=== PATIENT | female | born 1995 | race Caucasian/White ===

== ENCOUNTER 2020-10-03 10:59 | Inpatient (IN) | payer MEDICAID ==
[2020-10-03] MEDS ORDERED: RINGERS SOLUTION,LACTATED 1,000 ML IV PRN (11:17)
[2020-10-03] MEDS: RINGERS SOLUTION,LACTATED 1,000 ML IV PRN ×2 (11:50→17:39)
[2020-10-03 12:07] LABS: ABSOLUTE BASOPHILS # (AUTO) 0.1 10^3/uL (0.0-0.2); ABSOLUTE LYMPHOCYTES (AUTO) 1.3 10^3/uL (0.5-4.7); ABSOLUTE MONOCYTES (AUTO) 0.5 10^3/uL (0.1-1.4); BASOPHILS % (AUTO) 1.3 % (0-2); EOSINOPHILS % (AUTO) 0.4 % (0-6); HEMATOCRIT 34.5 % (36.0-47.0); HEMOGLOBIN 11.3 g/dL (12.0-15.5); LYMPHOCYTES % (AUTO) 19.2 % (13-45); MEAN CORPUSCULAR HEMOGLOBIN 26.7 pg (27.0-33.4); MEAN CORPUSCULAR HGB CONC 32.7 g/dL (32.0-36.0); MEAN CORPUSCULAR VOLUME 82 fl (80-97); MONOCYTES % (AUTO) 7.5 % (3-13); PLATELET COUNT 292 10^3/uL (150-450); RED BLOOD COUNT 4.24 10^6/uL (3.72-5.28); RED CELL DISTRIBUTION WIDTH 14.4 % (11.5-14.0); SEGMENTED NEUTROPHILS % (AUTO) 71.6 % (42-78); TOTAL CELLS COUNTED % (AUTO) 100 %
[2020-10-03 12:17] LABS: APPEARANCE,URINE CLEAR; BILIRUBIN,URINE NEGATIVE (NEGATIVE); COLOR,URINE STRAW; GLUCOSE, URINE NEGATIVE (NEGATIVE); KETONES,URINE NEGATIVE (NEGATIVE); LEUKOCYTE ESTERASE,URINE TRACE (NEGATIVE); NITRITE,URINE NEGATIVE (NEGATIVE); PROTEIN,URINE 30 mg/dL (NEGATIVE); URINE SPECIFIC GRAVITY 1.005; UROBILINOGEN,URINE NEGATIVE mg/dL (<2.0)
[2020-10-03 12:23] LABS: ALKALINE PHOSPHATASE 291 U/L (38-126); ANION GAP 8 (5-19); ASPARTATE AMINO TRANSFERASE 24 U/L (14-36); BILIRUBIN,DIRECT 0.2 mg/dL (0.0-0.4); BILIRUBIN,TOTAL 0.4 mg/dL (0.2-1.3); BLOOD UREA NITROGEN 9 mg/dL (7-20); CALCIUM 9.4 mg/dL (8.4-10.2); CARBON DIOXIDE 20 mmol/L (22-30); CHLORIDE 109 mmol/L (98-107); GLUCOSE 81 mg/dL (75-110); POTASSIUM 4.3 mmol/L (3.6-5.0); TOTAL PROTEIN 5.9 g/dL (6.3-8.2); URIC ACID 5.5 mg/dL (2.5-6.2)
[2020-10-03 12:50] LABS: UR PRO/CREAT RATIO RESULT 1.7 mg/mg (0.0-0.2); URINE CREATININE 51.6 mg/dL (16-327); URINE PROTEIN 87.6 mg/dL (<12)
[2020-10-03] MEDS ORDERED: OXYTOCIN/0.9 % SODIUM CHLORIDE 30 UNIT/500 ML RTUINJ IV PRN (18:01)
[2020-10-03] MEDS ORDERED: OXYTOCIN 10 UNIT/ML VIAL ONE (18:26)
[2020-10-03] MEDS ORDERED: MISOPROSTOL 0.2 MG TABLET ONE (18:27)
[2020-10-03] MEDS ORDERED: OXYTOCIN/0.9 % SODIUM CHLORIDE 30 UNIT/500 ML RTUINJ ONE (18:27)
[2020-10-03] MEDS ORDERED: LIDOCAINE 1% INJ-PF (10 MG/ML) 30 ML SDV ONE (18:27)
[2020-10-03] MEDS ORDERED: FENTANYL/BUPIVACAINE/NS/PF 300 MCG/150 ML RTUINJ EPI ONE (18:31)
[2020-10-03] MEDS ORDERED: EPHEDRINE SULFATE INJ 50 MG/1 ML AMPULE ONE (18:31)
[2020-10-03] MEDS ORDERED: ROPIVACAINE HCL 0.2% INJ/PF (2 MG/ML) 20 ML SDV ONE (18:32)
--- NOTE | 2020-10-03 23:00 | Admission Physical ---
Datetime Report Generated by CPN: 10/03/2020 23:00 CURRENT ADMISSION Chief Complaint: Sent from OB Office for Evaluation and Treatment - Please Specify Indication for Induction: Not Applicable Admit Impression : Term, Intrauterine Admit Plan: Admit to Unit ALLERGIES Medication Allergies: No Medication Allergies: No Known Allergies (10/03/2020) Latex: No Latex Allergies Food Allergies: none Environmental Allergies: none OBSTETRICAL HISTORY EDC: 10/15/2020 00:00 : 3 Para: 0 Term: 0 : 0 SAB: 0 IAB: 0 Ectopic: 0 Livin Cesareans: 0 VBACs: 0 Multiple Births: 0 Gestational Diabetes: No Rh Sensitization: No Incompetent Cervix: No LUCRECIA: No Infertility: No ART Treatment: No Uterine Anomaly: No IUGR: No Hx Previous C/S: No Macrosomia: No Hx Loss/Stillborn: No PIH: Yes Hx : No Placenta Previa/Abruption: No Depression/PP Depression: No PTL/PROM: No Post Hemorrhage: No Current Procedures: Ultrasound Obstetrical History Comments: G1- SAB at 7 weeks G2- SAB at 5 weeks G3- Current SEE RECORDS Alcohol: No Marijuana : No Cocaine: No Other Illicit Drugs: No Cigarettes: Never Smoker. [id number] MEDICAL HISTORY Diabetes: No Blood Transfusion: No Pulmonary Disease (Asthma, TB): No Breast Disease: No Hypertension: Yes Acute Dialysis Registered Nurse Surgery: No Heart Disease: No Hosp/Surgery: No Autoimmune Disorder: No Anesthetic Complications: No Kidney Disease: No Abnormal Pap Smear: No Neuro/Epilepsy: No Psychiatric Disorders: No Other Medical Diseases: No Hepatitis/Liver Disease: No Significant Family History: No Varicosities/Phlebitis: No Trauma/Violence : No Thyroid Dysfunction: No Medical History Comments: endometrosis INFECTIOUS HISTORY Gonorrhea: No Genital Herpes: No Chlamydia: No Tuberculosis: No Syphilis: No Hepatitis: No HIV/AIDS Exposure: No Rash or Viral Illness: No HPV: No PHYSICAL EXAM General: Normal HEENT: Normal Neurologic: Normal Thyroid: Normal Heart: Normal Lungs: Normal Breast: Deferred Back: Normal Abdomen: Normal Genitourinary Exam: Normal Extremities: Normal DTRs: Normal Pelvic Type: Adequate FETUS A EGA: 38.2 Admit Comment: elevated bp in office and noted to be 4-5 cms PLANS FOR LABOR AND DELIVERY Labor and Delivery: None Pain Management: Epidural Feeding Preference: Formula Benefit of Breast Feed Discussed: Yes Circumcision: Yes INFORMED CONSENT Signature: with User ID: [email or web address]
[2020-10-04] MEDS ORDERED: BENZOCAINE/MENTHOL AEROSOL SPRAY 56 ML TOP PRN (02:07)
[2020-10-04] MEDS ORDERED: GLYCERIN/WITCH HAZEL LEAF 1 EACH MED..WIPE TP PRN (02:07)
[2020-10-04] MEDS ORDERED: FAMOTIDINE 20 MG TABLET PO PRN (02:07)
[2020-10-04] MEDS ORDERED: DIPH/PERTUSS(ACELL)/TETANUS VAC/PF 0.5 ML SYR (>=10YO) IM PRN (02:07)
[2020-10-04] MEDS ORDERED: OXYTOCIN/0.9 % SODIUM CHLORIDE 30 UNIT/500 ML RTUINJ IV PRN (02:07)
[2020-10-04] MEDS ORDERED: ACETAMINOPHEN 650 MG SUPP.RECT PR PRN (02:07)
[2020-10-04] MEDS ORDERED: VARICELLA VACC/PF (1350 UNIT/0.5 ML) 0.5 ML VIAL SUBCUT PRN (02:07)
[2020-10-04] MEDS ORDERED: ACETAMINOPHEN WITH CODEINE #3 TABLET PO PRN (02:07)
[2020-10-04] MEDS ORDERED: ACETAMINOPHEN 325 MG TABLET PO PRN (02:07)
[2020-10-04] MEDS ORDERED: DIPHENHYDRAMINE HCL 25 MG CAPSULE PO PRN (02:07)
[2020-10-04] MEDS ORDERED: DIBUCAINE 1% OINTMENT 28 GM TP PRN (02:07)
[2020-10-04] MEDS ORDERED: MAG HYDROX/AL HYDROX/SIMETH SUSP 30 ML UDCUP PO PRN (02:07)
[2020-10-04] MEDS ORDERED: MEASLES,MUMPS&RUBELLA VACC/PF 0.5 ML VIAL SUBCUT PRN (02:07)
[2020-10-04] MEDS ORDERED: MAGNESIUM HYDROXIDE SUSP 30 ML UDCUP PO PRN (02:07)
[2020-10-04] MEDS ORDERED: ZOLPIDEM TARTRATE 5 MG TABLET PO PRN (02:07)
[2020-10-04] MEDS ORDERED: PSEUDOEPHEDRINE HCL 30 MG TABLET PO PRN (02:07)
--- NOTE | 2020-10-04 03:23 | Delivery Summary ---
Del Sum A-C Datetime Report Generated by CPN: 10/04/2020 03:23 DELIVERY PERSONNEL DELIVERY PERSONNEL: [id number] Delivery Doctor:: Brannon Swain MD Labor and Delivery Nurse:: Christine Martínez RNupfitter Nurse:: Suki Jeremy, JHONATHAN Column Precaster/LOADER OPERATOR/GROUND LEADER: Linda Green, ST MATERNAL INFORMATION Delivery Anesthesia: Epidural Medications After Delivery: Pitocin Bolus-Please Comment Delivery QBL: 100 Maternal Complications: None LABOR SUMMARY EDC: 10/15/2020 00:00 No. Babies in Womb: 1 Attempted: No Labor Anesthesia: Epidural LABOR INFORMATION Reason for Induction: Pre-Eclampsia Onset of Labor: 10/03/2020 19:30 Complete Dilatation: 10/03/2020 23:57 Oxytocin: Induction Group B Beta Strep: neg Antibiotics # of Doses: 0 Name of Antibiotic Given: n/a Steroids Given: None Reason Steroids Not Administered: Not Applicable MEMBRANES Membranes Rupture Method: Spontaneous Rupture of Membranes: 10/03/2020 23:14 Length of Rupture (hr): 2.73 Amniotic Fluid Color: Clear Amniotic Fluid Amount: Small Amniotic Fluid Odor: Normal STAGES OF LABOR Stage 1 hr: 4 Stage 1 min: 27 Stage 2 hr: 2 Stage 2 min: 1 Stage 3 hr: 0 Stage 3 min: 3 Total Time in Labor hr: 6 Total Time in Labor min: 31 VAGINAL DELIVERY Episiotomy: None Laceration #1: Perineal Laceration Extension #1: First Degree Laceration Repair: Yes Sponge Count Correct: Yes Sharps Count Correct: Yes CSECTION DELIVERY Primary Indication: N/A Secondary Indication: N/A CSection Incidence: N/A Labor: N/A Elective: N/A CSection Incision: N/A BABY A INFORMATION Delivery Date/Time: 10/04/2020 01:58 Method of Delivery: Vaginal Nurse Controlled Delivery: No Born in Route : No : N/A Forceps: N/A Vacuum Extraction: N/A Shoulder Dystocia : No PRESENTATION/POSITION BABY A Presentation: Cephalic Cephalic Presentation: Vertex Vertex Position: Left Occipital Anterior Breech Presentation: N/A PLACENTA INFORMATION BABY A Placenta Delivery Time : 10/04/2020 02:01 Placenta Method of Delivery: Spontaneous Placenta Status: Delivered SCORES BABY A Heart Rate 1 min: >100 bpm Resp Effort 1 min: Good Cry Reflex Irritability 1 min: Cough or Sneeze or Pulls Away Muscle Tone 1 min: Active Motion Color 1 min: Body [place], Extremities Blue Resuscitation Effort 1 min: Tactile Stimulation SCORE 1 MIN: 9 Heart Rate 5 min: >100 bpm Resp Effort 5 min: Good Cry Reflex Irritability 5 min: Cough or Sneeze or Pulls Away Muscle Tone 5 min: Active Motion Color 5 min: Body [place], Extremities Blue Resuscitation Effort 5 min: Tactile Stimulation SCORE 5 MIN: 9 INFANT INFORMATION BABY A Gestational Age at Delivery: 38.3 Gestational Status: Early Term- 37- 38.6 Weeks Infant Outcome : Liveborn Condition : Stable Sex: Male IDENTIFICATION BABY A Verification Date/Time: 10/04/2020 02:24 ID Band Number: [id number] Mother's Name Verified: Yes RN Verifying Infant: Viki Martínez, RN Additional Verifying Personnel: T Gentilin, RN WEIGHT/LENGTH BABY A Birthweight (gm): 2700 Infant Weight (lb): 5 Infant Weight (oz): 15 Length (in): 19.00 Infant Length (cm): 48.26 CORD INFORMATION BABY A No. Cord Vessels: 3 Nuchal Cord : N/A Cord Blood Taken: Yes-For Storage (Mom's Blood type +) Suction: None ASSESSMENT BABY A Complications: None Physical Findings at Delivery: Within Normal Limits Respirations: Appears Normal Skin to Skin: Yes Skin to Skin Time (min): 60 Pet Nutrition Specialist/ALS Called : No Care By: Trenton Luna RN Transferred To: Remains with Mother BABY B INFORMATION : N/A SIGNATURES Signature: with User ID: [email or web address]
--- NOTE | 2020-10-04 03:23 | Birth Certificate Data ---
Cert Data Datetime Report Generated by CPNicanor: 10/04/2020 03:23 CERTIFICATE DATA Delivery Provider: Brannon Swain MD (10/03/2020 11:43:uSki Luna RN) 47a. Care: Yes (10/03/2020 11:43:Jayde Anand RN) 47b. Date of First Visit: 04/04/2020 00:00 (10/03/2020 11:43:Christine Martínez RN) 47c. Date of Last Visit: 10/03/2020 00:00 (10/03/2020 11:43:Christine Martínez RN) 47d. Number of Visits: 10 (10/03/2020 11:43:Christine Martínez RN) 48a. Number of Prev Live Births: 0 (10/03/2020 11:43:Jayde Anand RN) 48b. Now Livin (10/03/2020 11:43:Jayde Anand RN) 48c. Live Births Now : 0 (10/03/2020 11:43:QS system process) 48e. Losses: 2 (10/03/2020 11:43:Christine Martínez RN) 48f. Date of Last Preg Loss: 04/18/2019 00:00 (10/03/2020 11:43:Christine Martínez RN) RISK FACTORS IN THIS 49a. Diabetes: No (10/03/2020 11:43:Jayde Anand RN) 49b. Hypertension: Yes (10/03/2020 11:43:Jayde Anand RN) Type of Hypertension: Gestational (PIH, Pre-eclampsia) (10/03/2020 11:43:Jayde Anand RN) 49c. Previous Births: 0 (10/03/2020 11:43:Jayde Anand RN) 49d. Stillborns: No (10/03/2020 11:43:Jayde Anand RN) 49d. IUGR: No (10/03/2020 11:43:Jayde Anand RN) 49e. Infertility Treatment: No (10/03/2020 11:43:Jayde Anand RN) 49f. Previous Cesareans: 0 (10/03/2020 11:43:Jayde Anand RN) Mother's Height 50b. Height Inches: 61 (10/03/2020 11:17:QS system process) Mother's Weight 51a. Pre- Weight (lbs): 130 (10/03/2020 11:43:Jayde Anand RN) 51b. Weight at Delivery (lbs): 158 (10/03/2020 11:17:QS system process) 52. Dt Last Normal Menses Began: 01/01/2020 00:00 (10/03/2020 11:43:Jayde Anand RN) Infections Present/Treated 53a. Gonorrhea: No (10/03/2020 11:43:Jayde Anand RN) Results this Hospital Visit : Negative (10/03/2020 11:43:Jayde Anand RN) 53b. Syphilis: No (10/03/2020 11:43:Jayde Anand RN) 53c. Chlamydia: No (10/03/2020 11:43:Jayde Anand RN) Results this Hospital Visit: Negative (10/03/2020 11:43:Jayde Anand RN) 53d. Hepatitis B: No (10/03/2020 11:43:Jayde Anand RN) Results this Hospital Visit: Negative (10/03/2020 11:43:Jayde Anand RN) 53e. Hepatitis C: Negative (10/03/2020 11:43:Jayde Anand RN) 53h. Mother Tested for HBsAG: Yes (10/03/2020 11:43:Jayde Anand RN) 53i. Date Tested: 04/04/2020 00:00 (10/03/2020 11:43:Jayde Anand RN) 53j. Test Result: Negative (10/03/2020 11:43:Jayde Anand RN) Obstetric Procedures 54a, b, c. Obstetric Procedures: Ultrasound (10/03/2020 11:43:Jayde Anand RN) Cigarette Smoking Cigarette Smoking: Never Smoker. [id number] (10/03/2020 11:43:Christine Martínez RN) 55a. 3 Months Before Preg - Ci (10/03/2020 11:43:Christine Martínez RN) 55a. Packs: 0 (10/03/2020 11:43:Christine Martínez RN) 55b. 1st Trimester of Preg- Ci (10/03/2020 11:43:Christine Martínez RN) 55b. Packs: 0 (10/03/2020 11:43:Christine Martínez RN) 55c. 2nd Trimester of Preg- Ci (10/03/2020 11:43:Christine Martínez RN) 55c. Packs: 0 (10/03/2020 11:43:Christine Martínez RN) 55d. 3rd Trimester of Preg- Ci (10/03/2020 11:43:Christine Martínez RN) 55d. Packs: 0 (10/03/2020 11:43:Christine Martínez RN) Onset of Labor 56a. PROM >12 Hrs: 2.73 (10/03/2020 11:43:QS system process) 56b. Precipitous Labor <3 Hrs: 6 (10/03/2020 11:56:QS system process) 56c. Prolonged Labor > 20 Hrs: 6 (10/03/2020 11:56:QS system process) 57a. Induction of Labor: Induction (10/03/2020 11:43:Suki Luna RN) 57c. Non-Vertex Presentation A: Vertex (10/03/2020 11:43:uSki Luna RN) 57d. Steroids - Lung Mat: None (10/03/2020 11:43:Suki Luna RN) 57d. Steroids - Lung Mat: Not Applicable (10/03/2020 11:43:Suki Luna RN) 57f. Mat [place] or Temp >100.4: 98.9 (10/03/2020 11:43:Suki Luna RN) 57g. Moderate/Heavy Meconium: Clear (10/03/2020 23:14:Christine Martínez RN) 57h. Intolerance of Labor: N/A (10/03/2020 11:43:Suki Luna RN) : N/A (10/03/2020 11:43:Suki Luna RN) 57i. Epidural/Spinal Anesthesia: Epidural (10/03/2020 11:43:Suki Luna RN) Method of Delivery 58a. Forceps - Unsuccessful A: N/A (10/03/2020 11:43:Suki Luna RN) 58b. Vacuum - Unsuccessful A: N/A (10/03/2020 11:43:Suki Luna RN) 58c. Presentation at 58c. Presentation at - A : Vertex (10/03/2020 11:43:Suki Luna RN) 58c. Presentation at - A : N/A (10/03/2020 11:43:Suki Luna RN) 58c. Presentation at - A : Cephalic (10/03/2020 15:59:Jayde Anand RN) Final Route and Method of Del 58d. Baby A Route/Delivery: Vaginal (10/04/2020 01:58:Christine Martínez RN) 58e. Trial of Labor Attempted: No (10/03/2020 11:43:Suki Luna RN) 58e. Trial of Labor Attempted A: N/A (10/03/2020 11:43:Suki Luna RN) 58e. Trial of Labor Attempted B: N/A (10/03/2020 11:43:Suki Luna RN) Maternal Morbidity 59b. 3rd or 4th Degree Lacs: Perineal (10/03/2020 11:43:Suki Luna RN) 59b. 3rd or 4th Degree Lacs: First Degree (10/03/2020 11:43:Christine Martínez, RN) Birthweight Baby A: 2700 (10/03/2020 11:43:Marisol Barillas RN) 60a. Pounds : 5 (10/03/2020 11:43:QS system process) 60b. Ounces: 15 (10/03/2020 11:43:QS system process) 61. GA at Delivery Baby A: 38.3 (10/03/2020 11:43:Suki Luna RN) : Early Term- 37- 38.6 Weeks (10/03/2020 11:43:QS system process) 62a. 5 Minute Baby A: 9 (10/03/2020 11:43:QS system process)
[2020-10-04] MEDS ORDERED: IBUPROFEN 800 MG TABLET ONE (03:36)
[2020-10-04] MEDS: IBUPROFEN 800 MG TABLET PO SCH ×3 (05:36→21:38)
[2020-10-04] MEDS: SENNOSIDES/DOCUSATE 8.6-50 MG 1 EACH TABLET PO SCH (09:45)
[2020-10-04] MEDS: FERROUS SULFATE 325 MG TABLET PO SCH ×2 (09:45→17:11)
[2020-10-04] MEDS: DOCUSATE SODIUM 100 MG CAPSULE PO SCH ×2 (09:45→17:11)
[2020-10-04] MEDS: PRENATAL VITAMIN W DHA CAPSULE PO SCH (09:45)
--- NOTE | 2020-10-04 10:07 | PDOC PROGRESS REPORT ---
Subjective-OB Progress Note for:: 10/04/20 Subjective: Pt doing well, no concerns. She reports light bleeding, reg diet and voiding w/o difficulty. Physical Exam (OB) Vital Signs: Temp Pulse Resp BP Pulse Ox 97.9 F 64 18 116/68 99 10/04/20 07:27 10/04/20 07:27 10/04/20 07:27 10/04/20 07:27 10/04/20 07:27 Intake & Output 10/03/20 10/04/20 10/05/20 06:59 06:59 06:59 Intake Total 140 Balance 140 Weight 71.5 kg - PIH/Pre-Eclampsia DTR's: 1 + Clonus: Negative Headache: Absent Epigastric Pain: No Visual Changes: No - Maternal Morbidity 59. Maternal Morbidity (serious complications experinced by the mother associated with labor and delivery: None of the above - Lochia Lochia Amount: Scant < 10 ml Lochia Color: Rubra/Red - Abdomen Description: Soft, Round Hernia Present: No Fundal Description: Firm, Midline Fundal Height: u/u - u/2 Objective-Diagnostic Laboratory: 10/03/20 11:31 10/03/20 11:31 10/03/20 10/03/20 10/03/20 11:23 11:31 11:31 WBC 7.0 RBC 4.24 Hgb 11.3 L Hct 34.5 L MCV 82 MCH 26.7 L MCHC 32.7 RDW 14.4 H Plt Count 292 Seg Neutrophils % 71.6 Sodium 136.9 L Potassium 4.3 Chloride 109 H Carbon Dioxide 20 L Anion Gap 8 BUN 9 Creatinine 0.53 Est GFR ( Amer) > 60 Glucose 81 Uric Acid 5.5 Calcium 9.4 Total Bilirubin 0.4 AST 24 Alkaline Phosphatase 291 H Total Protein 5.9 L Albumin 3.0 L Urine Color STRAW Urine Appearance CLEAR Urine pH 8.0 Ur Specific [place] 1.005 Urine Protein 30 H Urine Glucose (UA) NEGATIVE Urine Ketones NEGATIVE Urine Blood LARGE H Urine Nitrite NEGATIVE Ur Leukocyte Esterase TRACE H Blood Type Antibody Screen 10/03/20 11:31 WBC RBC Hgb Hct MCV MCH MCHC RDW Plt Count Seg Neutrophils % Sodium Potassium Chloride Carbon Dioxide Anion Gap BUN Creatinine Est GFR ( Amer) Glucose Uric Acid Calcium Total Bilirubin AST Alkaline Phosphatase Total Protein Albumin Urine Color Urine Appearance Urine pH Ur Specific [place] Urine Protein Urine Glucose (UA) Urine Ketones Urine Blood Urine Nitrite Ur Leukocyte Esterase Blood Type A POSITIVE Antibody Screen NEGATIVE Assessment and Plan(PN) - Assessment and Plan (1) Laceration, obstetrical, first degree Is this a current diagnosis for this admission?: Yes (2) Mild pre-eclampsia, delivered, current hospitalization Is this a current diagnosis for this admission?: Yes (3) Vaginal delivery Is this a current diagnosis for this admission?: Yes - Time Spent with Patient Time with patient: Less than 15 minutes Medications reviewed and adjusted accordingly: Yes - Disposition Anticipated Discharge Disposition: Home, Self Care Anticipated Discharge Timeframe: within 24 hours
[2020-10-05] MEDS: IBUPROFEN 800 MG TABLET PO SCH ×2 (05:40→13:14)
[2020-10-05 08:26] VITALS: BP 120/80
[2020-10-05 08:49] LABS: HEMATOCRIT 32.2 % (36.0-47.0); HEMOGLOBIN 10.8 g/dL (12.0-15.5); MEAN CORPUSCULAR HEMOGLOBIN 27.5 pg (27.0-33.4); MEAN CORPUSCULAR HGB CONC 33.5 g/dL (32.0-36.0); MEAN CORPUSCULAR VOLUME 82 fl (80-97); PLATELET COUNT 246 10^3/uL (150-450); RED BLOOD COUNT 3.92 10^6/uL (3.72-5.28); RED CELL DISTRIBUTION WIDTH 14.7 % (11.5-14.0); WHITE BLOOD COUNT 10.1 10^3/uL (4.0-10.5)
[2020-10-05] MEDS: SENNOSIDES/DOCUSATE 8.6-50 MG 1 EACH TABLET PO SCH (09:53)
[2020-10-05] MEDS: DOCUSATE SODIUM 100 MG CAPSULE PO SCH (09:53)
[2020-10-05] MEDS: PRENATAL VITAMIN W DHA CAPSULE PO SCH (09:53)
[2020-10-05] MEDS: FERROUS SULFATE 325 MG TABLET PO SCH (09:53)
--- NOTE | 2020-10-05 10:19 | PDOC PROGRESS REPORT ---
Subjective-OB Progress Note for:: 10/05/20 Subjective: Pt doing well, no concerns. She reports light bleeding, reg diet and voiding w/o difficulty. She would like to go home today. Physical Exam (OB) Vital Signs: Temp Pulse Resp BP Pulse Ox 97.4 F 82 16 120/80 100 10/05/20 07:53 10/05/20 07:53 10/05/20 07:53 10/05/20 07:53 10/05/20 07:53 Intake & Output 10/04/20 10/05/20 10/06/20 06:59 06:59 06:59 Intake Total 140 Balance 140 Weight 71.5 kg - Maternal Morbidity 59. Maternal Morbidity (serious complications experinced by the mother associated with labor and delivery: None of the above - Lochia Lochia Amount: Scant < 10 ml Lochia Color: Rubra/Red - Abdomen Description: Soft Hernia Present: No Fundal Description: Firm, Midline Fundal Height: u/u - u/2 Objective-Diagnostic Laboratory: 10/05/20 08:32 10/03/20 11:31 10/05/20 08:32 WBC 10.1 RBC 3.92 Hgb 10.8 L Hct 32.2 L MCV 82 MCH 27.5 MCHC 33.5 RDW 14.7 H Plt Count 246 Assessment and Plan(PN) - Assessment and Plan (1) Laceration, obstetrical, first degree Is this a current diagnosis for this admission?: Yes (2) Mild pre-eclampsia, delivered, current hospitalization Is this a current diagnosis for this admission?: Yes (3) Vaginal delivery Is this a current diagnosis for this admission?: Yes - Time Spent with Patient Time with patient: Less than 15 minutes Medications reviewed and adjusted accordingly: Yes - Disposition Anticipated Discharge Disposition: Home, Self Care Anticipated Discharge Timeframe: within 24 hours
--- NOTE | 2020-10-05 10:19 | PDOC DISCHARGE SUMMARY ---
Impression - Admit/DC Date/PCP Admission Date/Primary Care Provider: 10/03/20 10:59 OLGA HERNANDEZ CNM Discharge Date: 10/05/20 - Discharge Diagnosis (1) Laceration, obstetrical, first degree Is this a current diagnosis for this admission?: Yes (2) Mild pre-eclampsia, delivered, current hospitalization Is this a current diagnosis for this admission?: Yes (3) Vaginal delivery Is this a current diagnosis for this admission?: Yes - Additional Information Resuscitation Status: Full Code Discharge Diet: Regular Discharge Activity: Balance Activity w/Rest, Pelvic Rest Referrals: OLGA HERNANDEZ CNM [Primary Care Provider] - Prescriptions: Ibuprofen [Motrin 800 mg Tablet] 800 mg PO Q8HP PRN #60 tablet PRN Reason: Home Medications: Pnv 102/Iron/Folate 1/Dss/Dha [Vitafol Fe+ Docusate Combo Pck] 1 each PO DAILY 10/03/20 Ibuprofen [Motrin 800 mg Tablet] 800 mg PO Q8HP PRN #60 tablet 10/05/20 HPI Gestational Age: 38.2 Reason(s) for Admission: Induction of Labor, Obstetric Complications, PIH Admission Note: sent from office 4-5 cm dilated, with elevated BP and proteinuria Procedures: NST Intrapartum Procedure(s): Spontaneous Vaginal Delivery Complication(s): Laceration-Perineal Laceration-Degree: 1st Hospital Course 59. Maternal Morbidity (serious complications experinced by the mother associated with labor and delivery: None of the above Results Laboratory Results: WBC 10.1 10^3/uL (4.0-10.5) 10/05/20 08:32 RBC 3.92 10^6/uL (3.72-5.28) 10/05/20 08:32 Hgb 10.8 g/dL (12.0-15.5) L 10/05/20 08:32 Hct 32.2 % (36.0-47.0) L 10/05/20 08:32 MCV 82 fl (80-97) 10/05/20 08:32 MCH 27.5 pg (27.0-33.4) 10/05/20 08:32 MCHC 33.5 g/dL (32.0-36.0) 10/05/20 08:32 RDW 14.7 % (11.5-14.0) H 10/05/20 08:32 Plt Count 246 10^3/uL (150-450) 10/05/20 08:32 Lymph % (Auto) 19.2 % (13-45) 10/03/20 11:31 [place] % (Auto) 7.5 % (3-13) 10/03/20 11:31 Eos % (Auto) 0.4 % (0-6) 10/03/20 11:31 Baso % (Auto) 1.3 % (0-2) 10/03/20 11:31 Absolute Neuts (auto) 5.0 10^3/uL (1.7-8.2) 10/03/20 11:31 Absolute Lymphs (auto) 1.3 10^3/uL (0.5-4.7) 10/03/20 11:31 Absolute Monos (auto) 0.5 10^3/uL (0.1-1.4) 10/03/20 11:31 Absolute Eos (auto) 0.0 10^3/uL (0.0-0.6) 10/03/20 11:31 Absolute Basos (auto) 0.1 10^3/uL (0.0-0.2) 10/03/20 11:31 Seg Neutrophils % 71.6 % (42-78) 10/03/20 11:31 Sodium 136.9 mmol/L (137-145) L 10/03/20 11:31 Potassium 4.3 mmol/L (3.6-5.0) 10/03/20 11:31 Chloride 109 mmol/L (98-107) H 10/03/20 11:31 Carbon Dioxide 20 mmol/L (22-30) L 10/03/20 11:31 Anion Gap 8 (5-19) 10/03/20 11:31 BUN 9 mg/dL (7-20) 10/03/20 11:31 Creatinine 0.53 mg/dL (0.52-1.25) 10/03/20 11:31 Est GFR ( Amer) > 60 (>60) 10/03/20 11:31 Est GFR (MDRD) Non-Af > 60 (>60) 10/03/20 11:31 Glucose 81 mg/dL (75-110) 10/03/20 11:31 Uric Acid 5.5 mg/dL (2.5-6.2) 10/03/20 11:31 Calcium 9.4 mg/dL (8.4-10.2) 10/03/20 11:31 Total Bilirubin 0.4 mg/dL (0.2-1.3) 10/03/20 11:31 Direct Bilirubin 0.2 mg/dL (0.0-0.4) 10/03/20 11:31 Neonat Total Bilirubin Not Reportable 10/03/20 11:31 Neonat Direct Bilirubin Not Reportable 10/03/20 11:31 Neonat Indirect Bili Not Reportable 10/03/20 11:31 AST 24 U/L (14-36) 10/03/20 11:31 ALT 14 U/L (<35) 10/03/20 11:31 Alkaline Phosphatase 291 U/L (38-126) H 10/03/20 11:31 Lactate Dehydrogenase 248 U/L (120-246) H 10/03/20 11:31 Total Protein 5.9 g/dL (6.3-8.2) L 10/03/20 11:31 Albumin 3.0 g/dL (3.5-5.0) L 10/03/20 11:31 Urine Color STRAW 10/03/20 11:23 Urine Appearance CLEAR 10/03/20 11:23 Urine pH 8.0 (5.0-9.0) 10/03/20 11:23 Ur Specific [place] 1.005 10/03/20 11:23 Urine Protein 30 mg/dL (NEGATIVE) H 10/03/20 11:23 Urine Glucose (UA) NEGATIVE mg/dL (NEGATIVE) 10/03/20 11:23 Urine Ketones NEGATIVE mg/dL (NEGATIVE) 10/03/20 11:23 Urine Blood LARGE (NEGATIVE) H 10/03/20 11:23 Urine Nitrite NEGATIVE (NEGATIVE) 10/03/20 11:23 Urine Bilirubin NEGATIVE (NEGATIVE) 10/03/20 11:23 Urine Urobilinogen NEGATIVE mg/dL (<2.0) 10/03/20 11:23 Ur Leukocyte Esterase TRACE (NEGATIVE) H 10/03/20 11:23 Urine Creatinine 51.6 mg/dL (16-327) 10/03/20 11:23 Protein/Creatinin Ratio 1.7 mg/mg (0.0-0.2) H 10/03/20 11:23 Urine Total Protein 87.6 mg/dL (<12) H 10/03/20 11:23 Urine Ascorbic Acid NEGATIVE (NEGATIVE) 10/03/20 11:23 RPR NONREACTIVE (NONREACTIVE) 10/03/20 11:31 Blood Type A POSITIVE 10/03/20 11:31 Antibody Screen NEGATIVE 10/03/20 11:31 Plan Plan of Treatment: f/u at [facility] 4 wks Time Spent: Less than 30 Minutes
== END 2020-10-05 17:22 | disposition home or self-care (01) | DRG 807 ==
LOC: LR 10:59 → 2S 10-04 04:07
PROVIDERS: ADMIT Obstetrics & Gynecology Gynecology; ATTEND Obstetrics & Gynecology Gynecology
PROC: 10E0XZZ Delivery of Products of Conception, External Approach (ICD-10-PCS; principal; 2020-10-04)
PROC: 0HQ9XZZ Repair Perineum Skin, External Approach (ICD-10-PCS; 2020-10-04)
DX: O14.04 Mild to moderate pre-eclampsia, complicating childbirth (principal); Z37.0 Single live birth; O70.0 First degree perineal laceration during delivery; Z3A.38 38 weeks gestation of pregnancy
CPT/HCPCS: 1967; 36415; 80053; 81005; 82570; 83615; 84156; 84550; 85025; 85027; 86592; 86850; 86900; 86901; J2590; J2795; J3010; J3490